=== PATIENT | female | born 1980 | race Caucasian/White ===

== ENCOUNTER 2016-07-23 08:08 | Emergency (ER) | payer OTHER ==
[~2016-07-23] VITALS: Ht 162.6 cm; Wt 104.3 kg
[~2016-07-23 08:08] MED LIST: MAXIMUM ENERGY1 EACH PO; METRONIDAZOLE500 M1 PO; PREDNISONE 20MG20 MG PO; PROVENTIL0.09 MG/A1 PO; VENTOLIN H0.09 MG/Ac INH
[2016-07-23 08:13] VITALS: BP 118/80
[2016-07-23] MEDS ORDERED: PREDNISONE20 M1 PO ×2 (08:38→08:43)
[2016-07-23] MEDS ORDERED: ZITHROMAX250 M2 PO (08:38)
[2016-07-23] MEDS ORDERED: PROAIR HFA8.5 GM INH (08:38)
--- NOTE | 2016-07-23 08:38 | ED DYSPNEA/ASTHMA COMPLAINT ---
History of Present Illness General Chief Complaint: Dyspnea (COPD, CHF, Other) Stated Complaint: DIFF BREATHING,HX OF ASTHMA Source: patient Exam Limitations: no limitations Vital Signs & Intake/Output Vital Signs & Intake/Output Vital Signs Date Time Temp Pulse Resp B/P Pulse O2 O2 Flow FiO2 Ox Delivery Rate 07/23 0830 98 Room Air 07/23 08 98.1 75 16 118/80 98 Room Air Allergies Coded Allergies: NO KNOWN ALLERGIES (10/08/15) Reconcile Medications Albuterol Sulfate (Proair Hfa) 90 MCG HFA.AER.AD 2 PUF INH Q4-6 PRN PRN WHEEZING Albuterol Sulfate (Proventil Hfa) 90 MCG HFA.AER.AD 2 PUF INH Q4 WHEEZING Azithromycin (Zithromax) 250 MG TABLET 1 DP PO AD ASTHMA/BRONCHITIS 2 the first day followed by 1 for days 2-5 Herbal Drugs ([employer]) (Unknown Strength) TABLET (Unknown Dose) PO BID SUPPLEMENT (Reported) Metronidazole 500 MG TABLET 1 TAB PO BID BACTERIAL VAGINOSIS Prednisone 20 MG TABLET 2 TAB PO DAILY sob Triage Note: PT STATES SHE HAS A LOT OF CHEST CONGESTION AND HAVING A HARD TIME BREATHING. PT STATES SHE HAS A DRY COUGH Triage Nurses Notes Reviewed? yes : No Patient currently breastfeeds: No HPI: 35-year-old female with history mild asthma, no previous hospitalizations or intubations, nonsmoker, here with complaints of 2 days of mild rhinorrhea, cough that is nonproductive, mild congestion. Slight wheezing and dyspnea on exertion. She states that her lungs feel tight when she is out in the cold weather. Her boyfriend was sick with URI a few weeks ago. Symptoms are mild. She denies any fever or flulike symptoms. (MARINA CEBALLOS) Past History Travel History Traveled to [place] past 21 day No Medical History Any Pertinent Medical History? see below for history Neurological: NONE EENT: NONE Cardiovascular: NONE Respiratory: asthma Gastrointestinal: NONE Hepatic: NONE Renal: NONE Musculoskeletal: NONE Psychiatric: NONE Endocrine: NONE Blood Disorders: NONE Cancer(s): NONE DEVELOPER ADVISOR/Reproductive: NONE Surgical History Surgical History: appendectomy Psychosocial History What is your primary language Kazakh Tobacco Use: Never used ETOH Use: denies use Illicit Drug Use: marijuana Family History Hx Contributory? No (MARINA CEBALLOS) Review of Systems Review of Systems Constitutional: Reports: see HPI. EENTM: Reports: no symptoms. Respiratory: Reports: see HPI. Cardiovascular: Reports: no symptoms. GI: Reports: no symptoms. Genitourinary: Reports: no symptoms. Musculoskeletal: Reports: no symptoms. Skin: Reports: no symptoms. Neurological/Psychological: Reports: no symptoms. Hematologic/Endocrine: Reports: no symptoms. Immunologic/Allergic: Reports: no symptoms. All Other Systems: Reviewed and Negative (MARINA CEBALLOS) Physical Exam Physical Exam Respiratory: chest non-tender, no respiratory distress Comments: Well-developed well-nourished person in no acute distress HEENT: Normal EENT exam, extraocular motion intact, no nystagmus. Pupils equally round and reactive to light. Nose is atraumatic. External auditory canal and Tympanic membranes clear. Pharynx normal. No swelling or edema. Neck: Supple, no lymphadenopathy, normal range of motion without pain or tenderness Cardiovascular: Regular rate and rhythms no murmurs, normal JVP Respiratory: Chest nontender. No respiratory distress. Faint respiratory wheezing noted bilaterally Extremity: No edema, no calf tenderness to palpation, normal and equal pulses. Neuro: Alert oriented x3, motor sensory normal, cranial nerves II through XII grossly intact. Skin: No appreciable rash on exposed skin, skin is warm and dry. Psych: Mood and affect is normal, memory and judgment is normal. Core Measures ACS in differential dx? No Severe Sepsis Present: No Septic Shock Present: No (MARINA CEBALLOS) Progress Differential Diagnosis: asthma, AMI, altitude sickness, bronchitis, costochondritis, CHF, COPD, musculoskeletal pain, pericarditis, pulmonary embolism, pneumonia, pneumothorax, rib fracture, unstable angina Plan of Care: Mild asthma exacerbation, likely environmental, treat with prednisone and albuterol as patient is out of her usual medication. If she says getting any infectious symptoms she should start Zithromax which was discussed with her. Return with Symptoms Initial ED EKG: none (MARINA CEBALLOS) Departure Departure Disposition: HOME OR SELF CARE Condition: Stable Clinical Impression Primary Impression: Asthma exacerbation Referrals: PATIENT HAS NO PRIMARY CARE DR (PCP/Family) Additional Instructions: Take albuterol inhaler as needed for wheezing Take prednisone daily for shortness of breath If you're not feeling better in the next few days, started getting any fever or productive cough, Take antibiotics for your infection as directed. Use [id number] multisystem cold medication as needed. Zyrtec, Claritin or Elham D)( Motrin and Tylenol as needed for fever. Drink plenty of fluids. Return or follow-up with your doctor if not better in the next 3-5 days or if you're having continued worsening fevers, nausea, vomiting, shortness of breath, abdominal pain, difficulty swallowing or drinking or worsening flulike illness. Departure Forms: Customer Survey General Discharge Information Prescriptions: Current Visit Scripts Albuterol Sulfate (Proair Hfa) 2 PUF INH Q4-6 PRN PRN WHEEZING #1 INHAL Azithromycin (Zithromax) 1 DP PO AD #6 TAB 2 the first day followed by 1 for days 2-5 Prednisone 2 TAB PO DAILY #10 TAB Albuterol Sulfate (Proventil Hfa) 2 PUF INH Q4 #1 INHAL (MARINA CEBALLOS) PA/JAVA LEAD ENGINEER Co-Sign Statement Statement: ED Attending supervision documentation- [] I saw and evaluated the patient. I have also reviewed all the pertinent lab results and diagnostic results. I agree with the findings and the plan of care as documented in the PA's/JAVA LEAD ENGINEER's documentation. x I have reviewed the ED Record and agree with the PA's/JAVA LEAD ENGINEER's documentation. [] Additions or exceptions (if any) to the PAs/JAVA LEAD ENGINEER's note and plan are summarized below: [] (CHRISTIE GABRIEL,RANJAN) Critical Care Note Critical Care Note Critical Care Time: non-applicable (MARINA CEBALLOS)
[2016-07-23] MEDS ORDERED: PROVENTIL HFA6.7 GM INH (08:43)
== END 2016-07-23 08:45 ==
LOC: ERH 08:08
DX: J45.901 Unspecified asthma with (acute) exacerbation (principal)